=== PATIENT | female | born 1980 | race Two or more races ===

== ENCOUNTER 2020-10-12 08:50 | Outpatient (CLI) | payer OTHER ==
--- NOTE | 2020-10-13 11:26 | Mammography Report ---
BILATERAL DIGITAL DIAGNOSTIC MAMMOGRAM 3D/2D: 10/12/2020 CLINICAL: Palpable lumps in both breasts; however, patient is unable to locate any of the palpable ma sses she noticed before today's appointment. Comparison is made to exams dated: 12/25/2018 ultrasound, 12/25/2018 ultrasound, and 12/25/2018 mammogram - [facility]. The tissue of both breasts is heterogeneously dense. This may lower the sensi tivity of mammography. No significant masses, calcifications, or other findings are seen in either breast. IMPRESSION: BENIGN There is no abnormality seen in either breast to correspond with the areas of clinical concern/ palpa ble abnormalities, however, ultrasound is recommended and will immediately follow this exam. This exam was interpreted at Station ID: [id number]. NOTE: For mammograms, a report in lay terms will be sent to the patient. Approximately 15% of breast malignancies will not be visualized mammographically. In the management of a palpable breast mass, a negative mammogram must not discourage biopsy of a clinically suspicious lesion. Electronically Signed By: Pierre Jeronimo M.D. aty/:10/13/2020 11:25:35 ACR BI-RADS Category 2: Benign Finding(s) 3342F PARENCHYMAL PATTERN: (D) - The breast(s) demonstrate(s) heterogeneously dense fibroglandular parenchy ma. BI-RADS CATEGORY: (2) - 2 RECOMMENDATION: (ANNUAL) - Recommend routine annual screening mammography. [id number] return to screening LATERALITY: (B)
== END 2020-10-12 08:51 | disposition home or self-care (01) ==
LOC: DI 08:50
PROVIDERS: ATTEND Nurse Practitioner Family
DX: N60.01 Solitary cyst of right breast (principal); N60.02 Solitary cyst of left breast

== ENCOUNTER 2021-08-29 12:23 | Emergency (ER) | payer OTHER ==
--- NOTE | 2021-08-29 12:50 | ED Physician Documentation ---
PD HPI HEADACHE - Stated complaint Stated Complaint: HEADACHES - Chief complaint Chief Complaint: Neuro - History obtained from History obtained from: Patient - History of Present Illness Timing - onset: How many weeks ago (2-3 weeks of frequent migraines, occurring every few days. Prior frequency was 2-3 per year. Prior Rx for Maxalt PRN has worked. She states current headaches are same in character, with left eye visual lines, colors, and blurring prior to headaches. No focal weaknesses. No loss of vision. Nausea.) Timing - onset during: Other (no particular pattern to onset/triggers.) Timing - duration: Hours Timing - details: Gradual onset Worst headache ever?: No: Worst headache ever? Location: Back, Left Quality: Throbbing, Aching Associated symptoms: Nausea, Vision changes. No: Fever, Stiff neck, Vomiting, Weakness, Eye pain Worsened by: Light Contributing factors: Recent illness (she says mild URI type illness 3-4 weeks ago, and improved, but migraine frequency increased after that.). No: Hypertension, Trauma Similar symptoms before: Diagnosis (prior diagnosis migraines with classic pattern/symptoms. No prior imaging.) Recently seen: Not recently seen Review of Systems Constitutional: denies: Fever, Chills Eyes: reports: Decreased vision (blurred at edge with colored lights and lines prior to headaches.), Photophobia. denies: Loss of vision Nose: denies: Rhinorrhea / runny nose, Congestion, Sinus pressure / pain Throat: denies: Sore throat Respiratory: denies: Cough GI: reports: Nausea. denies: Abdominal Pain Skin: denies: Rash, Lesions Neurologic: reports: Headache. denies: Focal weakness, Numbness, Confused, Altered mental status, Head injury PD PAST MEDICAL HISTORY - Past Medical History Cardiovascular: None Respiratory: None Neuro: Migraines Endocrine/Autoimmune: None - Present Medications Home Medications: Ambulatory Orders Medication Instructions Recorded Confirmed HYDROcod/ACETAM 5/325 [[place] 5/325] 1 ea PO Q6H PRN #12 tablet 08/29/21 Promethazine [Phenergan] 25 mg PO Q6H PRN #20 tab 08/29/21 Rizatriptan Benzoate [Maxalt Air Value Tester] 10 mg ORAL DAILY PRN 08/29/21 08/29/21 dexAMETHasone [Decadron] 4 mg PO DAILY 7 Days #7 tablet 08/29/21 - Allergies Allergies/Adverse Reactions: Allergies Allergy/AdvReac Type Severity Reaction Status Date / Time naproxen [From Aleve] Allergy Hives Verified 08/29/21 12:43 PD ED PE NORMAL - Vitals Vital signs reviewed: Yes - General General: Alert and oriented X 3, No acute distress, Well developed/nourished - HEENT HEENT: PERRL, EOMI, Ears normal, Pharynx benign - Neck Neck: Supple, no meningeal sign, No adenopathy - Cardiac Cardiac: RRR, No murmur - Respiratory Respiratory: Clear bilaterally - Derm Derm: Normal color, Warm and dry - Extremities Extremities: Normal ROM s pain - Neuro Neuro: Alert and oriented X 3, 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 Had URI symptoms month ago or so. May have triggered more freq ones. To get CT to ensure no masses. ), d/w patient ED course: Short term can ttreat with steroids for a week, and add nausea meds/NSAIDs to use with prior Maxalt Rx. If reduces to infrequent, then continue PRN meds. If persist frequent, then to see PMD to consider prophylactics such as Topomax, lomotragene, elavil, etc. Departure - Departure Disposition: 01 Home, Self Care Clinical Impression: Migraine Qualifiers: Migraine type: ophthalmoplegic Intractability: not intractable Qualified Code(s): G43.B0 - Ophthalmoplegic migraine, not intractable Condition: Stable Record reviewed to determine appropriate education?: Yes Instructions: ED Headache Migraine Follow-Up: PAMELA VELA ARNP [Primary Care Provider] - Prescriptions: dexAMETHasone [Decadron] 4 mg PO DAILY 7 Days #7 tablet HYDROcod/ACETAM 5/325 [[place] 5/325] 1 ea PO Q6H PRN #12 tablet PRN Reason: Pain Promethazine [Phenergan] 25 mg PO Q6H PRN #20 tab PRN Reason: Nausea / Vomiting Comments: Your headaches do sound like migraine headaches with visual disturbance (aura). Since they have been more frequently the last few weeks, we can try to treat it with daily Decadron steroid for the next week along with promethazine if needed for nausea 2-3 times daily. In particular if you are more nauseous associated with the headaches. Try to stay well-hydrated. For recurrent migraine episodes, use the rizatriptan (Maxalt) your previously prescribed. You can combine it with the promethazine for nausea and some Tylenol or ibuprofen as well (or the Excedrin Migraine). See if that will terminate the migraines within a short period of time, commonly 20 to 30 minutes or so. Add Hydrocodone if needed for continued headache beyond that. If you continue with frequent migraines, you can discuss with your primary care other medications that would be prophylactic, meaning taking it every day to try to reduce the amount of migraines. Return to the ER if severe headache or other symptoms. I transmitted prescriptions to [facility] pharmacy. I am prescribing a short course of narcotic pain medication for you. These are potentially dangerous and addictive medications that should be used carefully. These medications may constipate you. Take an [id number]-[id number] stool softener such as docusate twice daily with plenty of water while taking these medications. If you go 24 hours without a bowel movement, take [id number] MiraLAX, per package instructions. Do not drink or drive while taking these medications. If you received narcotic or sedating medications while in the emergency department do not drive for 24 hours. Store this medication in a safe, secure place and out of reach of children. It is a violation of federal law to give or sell this medication to another person or to use in a manner other than prescribed. The ED will not refill narcotic prescriptions, including prescriptions lost or stolen. You can dispose of unwanted medications at the [facility]'s office or at several pharmacies such as [facility]. Discharge Date/Time: 08/29/21 15:07
[2021-08-29] MEDS ORDERED: ONDANSETRON ODT 4 MG TABLET TL STA (13:26)
[2021-08-29] MEDS ORDERED: CHERRY SYRUP 10 ML UDC PO ONE (13:26)
[2021-08-29] MEDS ORDERED: DEXAMETHASONE 10 MG/ML VIAL PO STA (13:26)
[2021-08-29] MEDS ORDERED: ACETAMINOPHEN 325 MG TABLET PO STA (13:26)
[2021-08-29] MEDS ORDERED: SUMAtriptan 25 MG TABLET PO STA (13:27)
--- NOTE | 2021-08-29 14:19 | CT Report ---
PROCEDURE: HEAD WO INDICATIONS: headaches for past few weeks TECHNIQUE: Noncontrast 4.5 mm thick angled axial sections acquired from the foramen magnum to the vertex. For r adiation dose reduction, the following was used: automated exposure control, adjustment of mA and/or kV according to patient size. COMPARISON: None. FINDINGS: Image quality: Excellent. CSF spaces: Basal cisterns are patent. No extra-axial fluid collections. Ventricles are normal in size and shape. Brain: No midline shift. No intracranial masses or hemorrhage. Chamberlain-white matter interface is norm al. Skull and face: Calvarium and visualized facial bones are intact, without suspicious lesions. Sinuses: Visualized sinuses and mastoids are clear. IMPRESSION: No acute intracranial abnormality. Reviewed by: Jose Luis Brewster MD on 08/29/2021 2:18 PM PST Approved by: Jose Luis Brewster MD on 08/29/2021 2:18 PM PST Station ID: [id number]
[2021-08-29 15:07] VITALS: BP 125/70
== END 2021-08-29 15:07 | disposition home or self-care (01) ==
LOC: ED 12:23
DX: G43.B0 Ophthalmoplegic migraine, not intractable (principal)
CPT/HCPCS: 70450; 99284; A9270; Q0162

== ENCOUNTER 2022-12-18 08:43 | Outpatient (CLI) | payer OTHER ==
[2022-12-18 09:38] VITALS: BP 126/74
--- NOTE | 2022-12-18 09:38 | SLEEP CARE CONSULTATION ---
Information from patient questionnaire entered by Jose Guadalupe Perry. I have reviewed and concur with the information entered by Jose Guadalupe Perry. This document represents the service I personally performed and the decisions made by me, Vivi Hernández ARNP. History of Present Illness Service Date and Time: 12/18/2022 0843 Reason for Visit: New patient, Previously diagnosed sleep apnea, sleep apnea on CPAP therapy Chief Complaint: reports: Other (TRANSFER FROM [facility] ) Date of Onset: long time, has snored for a far as she remembers Usual bedtime: 9-11M Time it takes to fall asleep: WITH MELATONIN ABOUT AN HR Snores at night: Yes Observed to quit breathing while asleep: Yes Sleeps alone due to snoring: Yes Number of times waking at night: 2-3 Reasons for waking at night: reports: Other (NOISE AND UNKNOWN). denies: Choking, Gasping for air Toss, Turn, or Twitch while sleeping: Yes Recalls having dreams: Yes Usually gets out of bed at: 6-8 Feels refreshed in the morning: Yes Morning headache: No Sleepy or fatigued during the day: Yes Ever fallen asleep while driving: No Takes day naps: No Dreams during day naps: Yes Prior sleep studies: Yes Year and Where: [facility] Additional HPI information: EMERSON BOLTON was previously diagnosed to have mild, AHI 13.4, obstructive sleep apnea-hypopnea syndrome in 11/2020 by [facility] and comes in today to establish care for CPAP therapy. - Parasomnia Symptoms Ever been unable to move upon waking from sleep: No Walks in sleep: No Talks in sleep: No Ever acted out dreams in sleep: Yes Ever felt weak in the knees when startled or emotional: No Bothered by creepy, crawly, restless sensations in legs: No Problems with memory or concentration: Yes (both) CPAP Compliance Data - Data Reviewed with Patient Average duration of nightly device use: 6 hours 9 minutes Compliance rate %: 80 ( days used) Current pressure setting (cmH2O): 10-18 (avg 16.7) Average residual AHI: 2.8 Central apnea: 0.6 Obstructive apnea: 1.4 Hypopnea: 0.8 Compliance data discussion: She is getting her supplies from [employer]. She is using a Airfit F30 small, full face mask. She states the headgear pulls on her hair and is uncomfortable. She would like to try a different mask style for comfort. Subjective Patient concerns: reports: mask discomfort (headgear is uncomfortable), mask leak noise, dry mouth, nose, throat (dry mouth, not often). denies: aerophagia, air blowing in eyes, condensation in mask/hose, nasal congestion, epistaxis Observed to snore while using device: No Current pressure setting perceived as: too low On therapy, patient: reports: sleeping better, awakening more refreshed, being more awake and alert during the day, more rested overall. 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 Patient is and lives in [place]. Have you smoked in the past 12 months: No Years of smokin Quit date: 2016 Alcohol use: Yes Alcohol amount and frequency: 1 X EVERY 2 MONTHS Caffeine use: Yes Caffeine amount and frequency: COFFEE EVERYDAY Family History Family history of sleep disordered breathing: Yes Family Hx Sleep Apnea: Mother: Snoring, Sleep apnea - Treated, Sibling: Snoring Allergies and Home Medications Known drug allergies: Yes (naproxen, ABREVA) Drug allergies reviewed: Yes Home medication list reviewed: Yes Allergy and home medication list: Allergies naproxen [From Aleve] Allergy (Verified 12/17/22 08:44) Hives Medications: Bupropion Review of Systems Weight gain over past 5 years: 20 Cardiovascular: reports: palpitations Respiratory: reports: shortness of breath Gastrointestinal: denies: heartburn Neurological: reports: headaches Psychiatric: reports: anxiety. denies: depression Ear/Nose/Throat: reports: tonsillectomy Musculoskeletal: reports: neck pain Physical Exam Vital signs obtained and entered by: JOSE GUADALUPE Gray MA Blood Pressure: 126/74 (LEFT ARM) Cuff size: regular Heart Rate: 97 O2 Saturation: 58 Height: 5 ft 4 in Weight: 188 lb Body Mass Index: 32.2 BMI Classification: Obese Neck circumference: 15.5 Heart: regular rate and rhythm Lungs: clear bilaterally Impression and Plan 1. Obstructive Sleep Apnea-Hypopnea Syndrome, mild, with good treatment compliance and good apnea control. On CPAP therapy, the patient has better sleep quality and is more rested overall. Patient just has problems with the headgear on her mask. It pulls on her hair and is uncomfortable. I showed her a few other options in our office and she would like to try using a nasal cushion mask. I will write for a mask refitting for a nasal mask along with an update of supplies for her DME. Patient's apnea severity and rationale for treatment to reduce apnea, improve sleep quality and reduce cardiovascular and cerebro vascular events was reviewed. I also reviewed the benefit of consistent device use of CPAP for pre-diabetes and anxiety. 2. Obesity, unspecified. Currently patients BMI is 32.2. Patient is trying to lose weight. She is working with her provider who wants to start her on a medication to help her lose weight. Obesity increases the risk of apnea, CPAP pressure requirements and overall health risks especially cardiovascular and diabetes. Thus patient is advised to continue to try to lose weight. * Continue auto CPAP pressure at 10-18 cmH2O * Mask fitting for a nasal cushion mask * Update supplies * Notify me if snoring with mask or feeling that the pressure is too much or too little * Attempt to lose weight * Call this office if any problems using CPAP * Return for follow up in 1 year, or sooner if concerns arise Counseling Topics: Spare mask, Weight loss health impact Visit Type: In Office Time Spent with Patient (minutes): 33 Provider Statement: I spent 100% of the Face to Face Visit with the patient with greater than 50% spent counseling the patient and coordination of care.
== END 2022-12-18 08:44 | disposition home or self-care (01) ==
LOC: SC 08:43
PROVIDERS: ATTEND Nurse Practitioner Family
DX: G47.33 Obstructive sleep apnea (adult) (pediatric) (principal); E66.9 Obesity, unspecified; Z68.32 Body mass index [BMI] 32.0-32.9, adult; Z87.891 Personal history of nicotine dependence
CPT/HCPCS: 99203; 99212

== ENCOUNTER 2023-07-13 23:09 | Emergency (ER) | payer OTHER ==
--- NOTE | 2023-07-13 23:36 | ED Physician Documentation ---
History of Present Illness - Stated complaint Stated Complaint: PALPITATIONS - Chief complaint Chief Complaint: Cardiac - History obtained from History obtained from: Patient - Additonal information Additional information: 43-year-old female with history of anxiety presents by private vehicle from home for palpitations earlier this evening. Patient states that she was resting at home when she felt her heart flutter for several seconds. She called her mother, who advised her to be evaluated in the emergency department. Patient states that she has gained a lot of weight recently and has been taking different supplements to help her lose weight. She has been taking special energy coffee blends this last week, most recently used yesterday. She states that she has had palpitations intermittently in the past, she was supposed to be seen by cardiology for Holter monitor, however this was 4 months ago and she has not been able to make an appointment to receive her monitor. Review of Systems Constitutional: denies: Fever, Chills Cardiac: reports: Palpitations. denies: Chest pain / pressure, Calf pain GI: denies: Abdominal Pain, Nausea, Vomiting : denies: Dysuria, Frequency, Hesitancy Musculoskeletal: denies: Neck pain, Back pain Neurologic: denies: Generalized weakness, Focal weakness, Numbness, Difficulty speaking PD PAST MEDICAL HISTORY - Past Medical History Cardiovascular: None Respiratory: None Neuro: Migraines Endocrine/Autoimmune: None GI: None HAY STACKER: None : None HEENT: None Psych: Depression, Anxiety Musculoskeletal: None Derm: None - Past Surgical History Past Surgical History: Yes /HAY STACKER: section HEENT: Tonsil/Adenoidectomy - Present Medications Home Medications: Ambulatory Orders Medication Instructions Recorded Confirmed Leilani Rogerr See Rx Instructions .ROUTE .COMPLEX 12/18/22 Silium Husk See Rx Instructions .ROUTE .COMPLEX 12/18/22 buPROPion [Wellbutrin Sr] See Rx Instructions .ROUTE .COMPLEX 12/18/22 12/18/22 - Allergies Allergies/Adverse Reactions: Allergies Allergy/AdvReac Type Severity Reaction Status Date / Time naproxen [From Aleve] Allergy Hives Verified 07/13/23 23:22 - Social History Does the pt smoke?: No Smoking Status: Former smoker Does the pt drink ETOH?: No Does the pt have substance abuse?: No - Immunizations Immunizations are current?: Yes PD ED PE NORMAL - Vitals Vital signs reviewed: Yes - General General: Alert and oriented X 3, No acute distress, Well developed/nourished - HEENT HEENT: Atraumatic - Neck Neck: Supple, no meningeal sign - Cardiac Cardiac: RRR, No murmur, Strong equal pulses - Respiratory Respiratory: No respiratory distress, Clear bilaterally - Abdomen Abdomen: Soft, Non tender, Non distended - Derm Derm: Normal color, Warm and dry, No rash - Extremities Extremities: No deformity, No tenderness to palpate, Normal ROM s pain, No edema - Neuro Neuro: Alert and oriented X 3, tax accounting assistant 2-12 intact - Psych Psych: Normal mood, Normal affect Results - Vitals Vitals: Vital Signs - 24 hr 07/13/23 07/14/23 07/14/23 23:17 00:01 01:21 Temperature 36.6 C Heart Rate 57 L 72 Respiratory 16 20 Rate Blood Pressure 137/94 H 123/76 Blood Pressure 121/67 [Left] O2 Saturation 98 99 Oxygen O2 Source Room air - EKG (time done) 2330 EKG releavant findings:: EKG personally interpreted by author of this note. Relevant findings are: Rate: Rate (enter#) (64) Rhythm: NSR [place]: Normal Intervals: Normal GA QRS: Normal Ischemia: Normal ST segments - Labs Labs: Laboratory Tests 07/13/23 07/13/23 07/13/23 23:30 23:30 23:39 WBC 12.2 H RBC 4.24 Hgb 12.0 Hct 36.5 L MCV 86.1 MCH 28.3 MCHC 32.9 RDW 13.2 Plt Count 352 MPV 9.1 Neut # (Auto) 6.2 Lymph # (Auto) 4.9 H [place] # (Auto) 0.8 Eos # (Auto) 0.3 Baso # (Auto) 0.1 Absolute Nucleated RBC 0.00 Nucleated RBC % 0.0 Sodium 134 L Potassium 3.6 Chloride 104 Carbon Dioxide 25 Anion Gap 5.0 L BUN 10 Creatinine 0.6 Estimated GFR (MDRD) 108 Glucose 113 H Calcium 9.2 Total Bilirubin 0.3 AST 14 ALT 23 Alkaline Phosphatase 71 Troponin I High Sens 3.9 Total Protein 6.9 Albumin 4.0 Globulin 2.9 Albumin/Globulin Ratio 1.4 TSH 3.36 Urine HCG, Qual NEGATIVE PD Medical Decision Making - ED course Complexity details: reviewed results, re-evaluated patient, considered differential, d/w patient ED course: Well-appearing patient with intermittent palpitations, none currently. Placed on prop making supervisor, pulse ox applied. On physical exam there is no abnormality identified. EKG is sinus rhythm without concerning findings. Will order cardiac work-up including TSH and will observe on prop making supervisor. Patient observed on prop making supervisor for 2 hours, she stated that she felt palpitations briefly during her ER stay, however there were no captured arrhythmias on monitor. Laboratory work is unremarkable, chest x-ray negative for acute findings. Patient counseled of all lab and imaging findings at bedside. Reassurance provided. Emphasized the need for cardiology follow-up to get her Holter monitor for additional data capture and possible eventual diagnosis. ED return precautions discussed at bedside. Departure - Departure Disposition: 01 Home, Self Care Clinical Impression: Palpitations Condition: Stable Instructions: Heart Palpitations Forms: PCP List Discharge Date/Time: 07/14/23 01:21
[2023-07-13 23:45] LABS: BASOPHILS # (AUTO) 0.1 10^3/uL (0.0-0.1); BASOPHILS % (AUTO) 0.6 %; EOSINOPHILS # (AUTO) 0.3 10^3/uL (0.0-0.7); EOSINOPHILS % (AUTO) 2.5 %; HCT - HEMATOCRIT 36.5 % (37.0-47.0); LYMPHOCYTES # (AUTO) 4.9 10^3/uL (1.5-3.5); LYMPHOCYTES % (AUTO) 39.7 %; MEAN CORPUSCULAR HEMOGLOBIN 28.3 pg (27.0-31.0); MEAN CORPUSCULAR HGB CONC 32.9 g/dL (32.0-36.0); MEAN CORPUSCULAR VOLUME 86.1 fL (81.0-99.0); MEAN PLATELET VOLUME 9.1 fL (7.9-10.8); MONOCYTES # (AUTO) 0.8 10^3/uL (0.0-1.0); MONOCYTES % (AUTO) 6.5 %; NEUTROPHILS # (AUTO) 6.2 10^3/uL (1.5-6.6); NEUTROPHILS % (AUTO) 50.5 %; PLT - PLATELET COUNT 352 10^3/uL (130-450); RED BLOOD COUNT 4.24 10^6/uL (4.20-5.40); RED CELL DISTRIBUTION WIDTH 13.2 % (12.0-15.0); WHITE BLOOD COUNT 12.2 x10^3/uL (4.8-10.8)
[2023-07-13 23:48] LABS: HCG UR QUAL NEGATIVE
[2023-07-14 00:01] LABS: ALBUMIN/GLOBULIN RATIO 1.4 (1.0-2.2); BILIRUBIN,TOTAL 0.3 mg/dL (0.2-1.0); CALCIUM 9.2 mg/dL (8.5-10.3); CREATININE 0.6 mg/dL (0.6-1.3); POTASSIUM 3.6 mmol/L (3.5-4.5); TOTAL PROTEIN 6.9 g/dL (6.4-8.9)
[2023-07-14 00:05] LABS: TROPONIN I HIGH SENSITIVITY 3.9 ng/L (2.3-14.8)
[2023-07-14 00:14] LABS: THYROID STIMULATING HORMONE 3.36 uIU/mL (0.34-5.60)
--- NOTE | 2023-07-14 00:57 | XRAY Report ---
PROCEDURE: Chest 1 View X-Ray INDICATIONS: PALPITATIONS TECHNIQUE: One view of the chest was acquired. COMPARISON: None. FINDINGS: Surgical changes and devices: None. Lungs and pleura: No pleural effusions or pneumothorax. Lungs are clear. Mediastinum: Mediastinal contours appear normal. Heart size is normal. Bones and chest wall: No suspicious bony lesions. Overlying soft tissues appear unremarkable. IMPRESSION: No acute cardiopulmonary process. Reviewed by: Devin Zamarripa MD on 07/14/2023 12:55 AM PDT Approved by: Devin Zamarripa MD on 07/14/2023 12:55 AM PDT Station ID: [id number]
[2023-07-14 01:31] VITALS: BP 123/76; O2SAT 99
== END 2023-07-14 01:21 | disposition home or self-care (01) ==
LOC: ED 23:09
DX: R00.2 Palpitations (principal); Z87.891 Personal history of nicotine dependence
CPT/HCPCS: 36415; 80053; 81025; 84443; 84484; 85025; 93005; 99283; 99284

== ENCOUNTER 2023-12-18 14:31 | Outpatient (CLI) | payer OTHER ==
--- NOTE | 2023-12-18 15:01 | Sleep Patient Instructions ---
Sleep Center Visit Summary - Patient Visit Information Reason for Visit: Annual follow-up - Patient Instructions Additional Instructions: You will continue with CPAP therapy with pressure set at 10-18 cmH2O. A supply prescription will be updated with your DME. We encourage you to continue to try to lose weight. Please follow up with the sleep care office in 1 year. - Clinic Information Contact: [facility] [address] [place] [address] [email or web address] T: [phone]
--- NOTE | 2023-12-18 15:06 | SLEEP CARE CONSULTATION ---
Information from patient questionnaire entered by Sabrina Perry. I have reviewed and concur with the information entered by Sabrina Perry. This document represents the service I personally performed and the decisions made by , Vivi Hernández ARNP. History of Present Illness Service Date and Time: 12/18/2023 1431 Previous diagnosis: Mild, Obstructive Sleep Apnea-Hypopnea Syndrome AHI: 13.4 (11/2020) Reason for follow up: annual (LAST SEEN 11/2022) Equipment type: CPAP ([facility] 2 SET UP DATE 03/22/2021) Equipment obtained from: [employer] (getting supplies but slower then last year) Mask style: Full face Backup mask available: No Last cushion change: 4 months Prior sleep studies: Yes Year and Where: [facility] additional information: EMERSON BOLTON was diagnosed to have mild, AHI 13.4, obstructive sleep apnea-hypopnea syndrome and returned today for CPAP therapy annual follow-up. Sleep Study - Results Prior sleep studies: Yes Year and Where: [facility] Compliance Data - Data Reviewed with Patient Average duration of nightly device use: 4 HRS 55 MINS 2 SECS Compliance rate %: 63.6 (12/16/22-12/15/23; ) Current pressure setting (cmH2O): 10-18 Average residual AHI: 3.0 Central apnea: 0.4 Obstructive apnea: 1.6 Hypopnea: 1 Average large leak: 2 mins 58 secs Subjective Missed days of use due to: reports: mask issues, other (supply issues, hard to get supplies) Patient concerns: reports: mask discomfort (sometimes nose hurts), air blowing in eyes, dry mouth, nose, throat (dry mouth). denies: aerophagia, mask leak noise, condensation in mask/hose, nasal congestion, epistaxis Observed to snore while using device: No Current pressure setting perceived as: comfortable On therapy, patient: reports: sleeping better, awakening more refreshed, being more awake and alert during the day, more rested overall. denies: drowsiness while driving Initial [place] Sleepiness Scale score: 9 (12/18/22) Current [place] Sleepiness Scale score: 11 (12/18/23) Allergies and Home Medications Known drug allergies: Yes (as listed) Drug allergies reviewed: Yes Home medication list reviewed: Yes (no changes) Allergy and home medication list: Allergies naproxen [From Aleve] Allergy (Verified 12/16/23 09:29) Hives Home Medications Medication Instructions Recorded Confirmed Last Taken Type buPROPion [Wellbutrin Sr] See Rx Instructions .ROUTE .COMPLEX 12/18/22 12/18/23 Unknown History Review of Systems Review of systems same as previous: Yes (NO CHANGE) Physical Exam Vital signs obtained and entered by: SABRINA Gray MA Blood Pressure: 114/69 (RIGHT ARM) Cuff size: regular Heart Rate: 60 O2 Saturation: 98 Height: 5 ft 4 in Weight: 195 lb 3.2 oz Weight change since last visit: 7 lb gain Body Mass Index: 33.5 BMI Classification: Obese Impression and Plan 1. Obstructive Sleep Apnea-Hypopnea Syndrome, mild, with fair treatment compliance and good apnea control. On CPAP therapy, the patient has better sleep quality and is more rested overall. Her compliance has been affected by her ability to get supplies for using her CPAP. She says she has had slow response for her supplies this year from her DME supplier. She says she thinks she just got some supplies that arrived at her house yesterday or today. Before that, she has not had a shipment for several months causing her to have to use her current cushion for longer. She is getting more air leaks and having to tighten her headset more to prevent air leaking and get a good seal. She thought about trying a different mask style but after our discussion decided to stay with the full face mask she is using. She was advised to contact her current DME supplier to discuss her issues to see if she can clear things up. She voiced understanding and agreement. Patient's apnea severity and rationale for treatment to reduce apnea, improve sleep quality and reduce cardiovascular and cerebrovascular events was reviewed. I also reviewed the benefit of consistent device use of CPAP for pre-diabetes and anxiety. 2. Obesity, unspecified. Currently patients BMI is 33.5. Obesity increases the risk of apnea, CPAP pressure requirements and overall health risks especially cardiovascular and diabetes. Thus patient is advised to lose weight. * Continue auto CPAP pressure at 10-18 cmH2O * Update supply prescription * Notify me if snoring with mask or feeling that the pressure is too much or too little * Attempt to lose weight * Call this office if any problems using CPAP * Return for follow up in 12 months, or sooner if concerns arise Counseling Topics: Spare mask, Weight loss health impact Prescriptions: Device supplies Follow up with Sleep Care in: 1 year Visit Type: In Office Time Spent with Patient (minutes): 22 Provider Statement: I spent 100% of the Face to Face Visit with the patient with greater than 50% spent counseling the patient and coordination of care.
[2023-12-18 15:15] VITALS: BP 114/69; O2SAT 98
== END 2023-12-18 14:32 | disposition home or self-care (01) ==
LOC: SC 14:31
PROVIDERS: ATTEND Nurse Practitioner Family
DX: G47.33 Obstructive sleep apnea (adult) (pediatric) (principal); E66.9 Obesity, unspecified; Z68.33 Body mass index [BMI] 33.0-33.9, adult
CPT/HCPCS: 99212; 99213

== ENCOUNTER 2024-01-14 15:55 | Outpatient (CLI) | payer OTHER ==
--- NOTE | 2024-01-14 17:44 | MRI Report ---
PROCEDURE: Cervical Spine WO INDICATIONS: CERVICALGIA TECHNIQUE: Noncontrast sagittal T1 spin echo and T2 fast spin echo, sagittal STIR, foraminal oblique sagittal T2 fast spin echo, and axial gradient echo or T2 fast spin echo through the cervical spine. COMPARISON: None. FINDINGS: Image quality: Excellent. Alignment and Curvature: There is overall straightening of the normal cervical lordosis. There is mi nimal anterolisthesis seen at the C4-C5 level. Bone Marrow: Marrow demonstrates normal overall signal. Spinal Cord: Visualized spinal cord has normal size and signal. No cerebellar tonsillar herniation. Paraspinous Soft Tissues: No paravertebral masses. Prevertebral soft tissues are normal in thicknes s. C2-C3: No significant abnormality is seen. C3-C4: The disc height is well-preserved. There is loss of disc signal seen. Mild to moderate disc osteophyte complex is seen. There is moderate right-sided and moderate to severe left-sided facet hyp ertrophy. There is at least moderate bilateral neuroforaminal narrowing seen. Minimal central canal n arrowing is seen. C4-C5: The disc height is well-preserved. There is loss of disc signal seen. Moderate disc osteophy te complex is seen. There is mild to moderate right-sided and at least moderate left-sided facet hype rtrophy. There is moderate to severe left-sided and no right-sided neuroforaminal narrowing. No centr al canal narrowing is seen. C5-C6: Mild loss of disc height and disc signal are seen. Moderate disc osteophyte complex is seen. Mild facet hypertrophy is seen. There is mild right-sided and moderate left-sided neural foramina l narrowing. No significant central canal narrowing is seen. C6-C7: The disc height is well-preserved. There is loss of disc signal seen. Mild disc osteophyte complex is seen. Mild facet hypertrophy is seen. No significant neural foraminal or central canal narrowing can be seen. C7-T1: The disc height and disc signal are well preserved. Moderate disc osteophyte complex is seen . Mild facet hypertrophy is seen. There is moderate left-sided and mild to moderate right-sided neur oforaminal narrowing seen. No central canal narrowing is seen. IMPRESSION: Multiple levels of premature cervical spine degenerative change can be seen. Straightening of the normal cervical lordosis is seen, which is commonly observed in patients with mu scular spasm. Reviewed by: Gilbert Olguin MD on 01/14/2024 4:43 PM TRAM Approved by: Gilbert Olguin MD on 01/14/2024 4:43 PM TRAM Station ID: [id number]
== END 2024-01-14 15:56 | disposition home or self-care (01) ==
LOC: DI 15:55
PROVIDERS: ATTEND Family Medicine
DX: M47.812 Spondylosis without myelopathy or radiculopathy, cervical region (principal)